=== PATIENT | female | born 1990 | race Two or more races ===

== ENCOUNTER 2025-03-01 08:31 | Outpatient (CLI) | payer OTHER | END 2025-03-01 09:07 | disposition home or self-care (01) | LOC: TOM 08:31 | PROVIDERS: ATTEND Internal Medicine | DX: R51.9 Headache, unspecified (principal) ==

== ENCOUNTER 2025-03-01 09:33 | Outpatient (CLI) | payer OTHER ==
[2025-03-01 10:13] LABS: BASO % 0.6 % (0.1-1.2); EOS # 0.05 (0.04-0.54); EOS % 0.7 % (0.7-7.0); LYMPH # 2.53 (1.18-3.74); LYMPH % 36.3 % (19.3-53.1); MEAN PLATELET VOLUME 10.10 fl (9.4-12.4); MONO # 0.49 (0.24-0.82); MONO % 7.0 % (4.7-12.5); NEUT # 3.84 (1.56-6.13); NEUT % 55.1 % (34.0-71.1); RED CELL DISTRIBUTION WIDTH 15.8 % (11.6-14.4)
[2025-03-01 10:18] LABS: URINE APPEARANCE Clear; URINE BILIRRUBIN Negative (NEGATIVE); URINE BLOOD Negative; URINE COLOR Yellow; URINE GLUCOSE Negative (NEGATIVE); URINE KETONE Negative (NEGATIVE); URINE LEUKOCYTE Trace; URINE NITRATE Negative; URINE PROTEIN Negative (NEGATIVE); URINE UROBILINOGEN 0.2 E.U./dl
[2025-03-01 10:22] LABS: URINE BACTERIA 445.0 uL (0.0-1933); URINE EPITHELIAL CELLS 14.5 uL (0.0-38.8); URINE RBC 2.8 uL (0.0-20.8); URINE WBC 8.1 uL (0.0-23.2)
[2025-03-01 10:30] LABS: ERYTHROCYTE SEDIMENTATION RATE 62 mm/hr (0-20)
[2025-03-01 10:39] LABS: URINE CAST 0.00 uL (0.0-1.40)
[2025-03-01 10:47] LABS: ALT/SGPT 21.0 U/L (12-78); AST/SGOT 17.0 U/L (15-37); BILIRUBIN TOTAL 0.36 mg/dL (0.3-1.2); BUN CREA RATIO 16.0 (7.0-25.0); CREATININE SERUM 0.64 mg/dL (0.55-1.02); GFR 105.0; GLOBULINA 3.9 G/DL (2.4-3.5); GLUCOSE FASTING 78.0 mg/dL (65-100); OSMOLALITY SERUM 279.0 MOSM/KG (275-295)
[2025-03-01 10:52] LABS: T4 TOTAL 5.87 UG/DL (4.8-13.9); TSH 3.7 uIU/mL (0.358-3.74)
[2025-03-01 11:13] LABS: T3 TOTAL 1.03 ng/ml (0.846-2.02)
== END 2025-03-01 09:37 | disposition home or self-care (01) ==
LOC: LAB 09:33
DX: D64.9 Anemia, unspecified (principal); N39.0 Urinary tract infection, site not specified; E78.5 Hyperlipidemia, unspecified; E55.9 Vitamin D deficiency, unspecified; M25.50 Pain in unspecified joint